=== PATIENT | male | born 1960 | race Caucasian/White ===

== ENCOUNTER 2023-12-13 11:05 | Emergency (ER) | payer OTHER ==
[~2023-12-13] VITALS: Ht 172.7 cm; Wt 95.3 kg
[~2023-12-13 11:05] MED LIST: ACET-10509 PO; CIPR500T4 PO; IBUP-2213 PO; METR-435 PO
[2023-12-13 11:41] VITALS: BP 113/72; PULSE 91; RESP 18; TEMP 97.7; O2SAT 94
[2023-12-13] MEDS ORDERED: LIDOCAINE 5% 1 EA PATCH TP ONE (13:12)
[2023-12-13] MEDS ORDERED: KETOROLAC 30 MG/ML VIAL ONE (13:12)
[2023-12-13] MEDS: KETOROLAC 30 MG/ML VIAL IM ONE (13:17)
[2023-12-13] MEDS: LIDOCAINE 5% 1 EA PATCH TP ONE (13:18)
[2023-12-13] MEDS ORDERED: ACET-8905 PO (13:44)
[2023-12-13] MEDS ORDERED: LID5T TP (13:44)
[2023-12-13 14:51] VITALS: BP 111/71; PULSE 89; RESP 15; TEMP 97.7; O2SAT 94
== END 2023-12-13 14:56 | disposition home or self-care (01) ==
LOC: MED 11:05
DX: S32.010A Wedge compression fracture of first lumbar vertebra, initial encounter for closed fracture (principal); E11.9 Type 2 diabetes mellitus without complications; I10 Essential (primary) hypertension; Z79.4 Long term (current) use of insulin; Z79.899 Other long term (current) drug therapy; W18.30XA Fall on same level, unspecified, initial encounter; Y93.89 Activity, other specified; Y92.89 Other specified places as the place of occurrence of the external cause; Y99.8 Other external cause status
CPT/HCPCS: 72110; 72170; 96372; 99284; J1885